=== PATIENT | female | born 1985 | race Caucasian/White ===

== ENCOUNTER 2023-02-18 04:56 | Observation (INO) | payer MEDICAID, SELFPAY ==
[2023-02-18 05:03] VITALS: BMI 22.7
[2023-02-18 05:04] VITALS: BP 112/73; PULSE 97; RESP 17; TEMP 36.6; O2SAT 97
--- NOTE | 2023-02-18 05:19 | PCM.HP.STD ---
HPI - General General Date of Admission: 02/18/23 Date of Service: 02/18/23 Chief Complaint: Desire for detoxification HPI Narrative SANYA COATS, is a 37 F with a significant history of bipolar disorder and polysubstance abuse who was transferred from [facility] for detoxification . Patient's drug of choice is methamphetamine but she states that the methamphetamine is laced with fentanyl. She also smokes marijuana. Further occasionally she uses cocaine. She was prescribed Suboxone but she states that the last time that she used Suboxone was about 2 months ago. She does not take her prescribed Suboxone because her drug of choice is methamphetamine. Upon transfer discussion to our hospital it was discussed with ED physician to notify patient that this is a predominantly Subutex program. And upon arrival patient was amenable to receiving Subutex and stated that her methamphetamine is mixed with fentanyl. Methamphetamine laced with fentanyl: She uses about 2 to 3 g/day. She uses every day. She has been using for the past 1 year. Last day she used was on 02/16/2023. Cocaine use: She been using cocaine about 1-2 times per month. She reports withdrawal symptoms of body aches and fatigue. [facility] Medical History (Updated 02/18/23 @ 06:[address] Matt Rodriguez MD) Acute hepatitis C Anxiety Bipolar disorder Depression Home Medications aripiprazole 10 mg tablet 10 mg PO DAILY 02/18/23 [History Last Taken Unknown] hydroxyzine pamoate 25 mg capsule 50 mg PO TID PRN Anxiety 02/18/23 [History Last Taken Unknown] sertraline 50 mg tablet 50 mg PO DAILY 02/18/23 [History Last Taken Unknown] Allergy/AdvReac Type Severity Reaction Status Date / Time No Known Allergies Allergy Verified 02/18/23 04:56 Family History (Updated 02/18/23 @ 06:[address] Matt Rodriguez MD) Other Glaucoma Surgical History (Updated 02/18/23 @ 06:[address] Matt Rodriguez MD) H/O tooth extraction History of Social History Smoking Status: Current every day smoker tobacco type: cigarettes ROS ROS Narrative Pertinent positives and pertinent negatives as noted in HPI. All other systems were reviewed and are negative. Vital Signs Vital Signs Vital Signs: 02/18/23 05:04 Temperature 97.8 F Temperature Source Oral Pulse Rate 97 Respiratory Rate 17 Blood Pressure 112/73 Blood Pressure Mean 86 Blood Pressure Source Monitor Blood Pressure Position Semi-Fowlers Blood Pressure Location Right Arm Pulse Ox 97 Oxygen Delivery Method Room Air Weight Weight: 60.1 kg Body Mass Index (BMI) 22.7 Physical Exam Narrative Physical exam: General: Well-nourished, well-developed. Head: Normocephalic, atraumatic, no tenderness Eyes: Vision is grossly intact. EOMI ENT, no trauma, moist mucous membranes, no rhinorrhea Neck: Nontender, No thyromegaly. CVS: Regular rate and rhythm. S1-S2 present. No murmur, gallop or rub. Respiratory : clear to auscultation bilaterally, chest wall nontender Abdomen: Soft, nontender, nondistended, normal bowel sounds, no masses : Deferred Back: Nontender, no CVA tenderness, no midline spinal tenderness, deformities, step-offs Extremities: Nontender full range of motion, no trauma Skin: Normal color, no trauma, abrasions. Needle track redmond of bilateral upper extremities. Neuro: Alert, oriented, cranial nerves II through XII grossly intact. Psychiatry: Normal mood. Normal affect. Not depressed. Not anxious. Assessment & Plan Assessment/Plan (1) Desire for detoxification: (2) Opioid abuse: (3) Methamphetamine abuse: (4) Tobacco use: PLAN: Plan Opioid dependence and withdrawal Patient will be started on Subutex and other adjunctive medications: Gabapentin as needed; dicyclomine as needed; Vistaril as needed; methocarbamol as needed; clonidine as needed; Imodium as needed; trazodone as needed and Zofran as needed. Monitor COWS and CINA score Methamphetamine abuse Counselled Marijuana abuse Counseled Tobacco abuse Counseled Scheduled nicotine patch and as needed nicotine gum prescribed. DVT prophylaxis Low risk Encourage to ambulate Charges/Coding Visit Charges Inpatient E&M: 80162 Init Hosp L2
[2023-02-18] MEDS: Methocarbamol 750 MG Tablet 1500 MG PO ×2 (05:41→22:15)
[2023-02-18 07:20] VITALS: O2SAT 98
--- NOTE | 2023-02-18 07:54 | PN.HOSP_ITS ---
Reason for Visit Reason for Visit: Diagnoses Opioid abuse, uncomplicated (02/18/23) Other stimulant abuse, uncomplicated (02/18/23) Tobacco use (02/18/23) Subjective Subjective Feels sick. Feels hot. Objective Data Objective Data Vital Signs: Vital Signs Temp Pulse Resp BP Pulse Ox O2 Del Method 36.6 C 97 17 112/73 98 Room Air 02/18/23 05:04 02/18/23 05:04 02/18/23 05:04 02/18/23 05:04 02/18/23 07:20 02/18/23 07:20 Oxygen Delivery Method Room Air Weight: 60.1 kg Body Mass Index (BMI) 22.7 Intake & Output: Intake and Output for Last 24 Hours 02/16/23 02/17/23 02/18/23 23:59 23:59 23:59 Intake Total 200 / 200 Balance 200 / 200 Physical Exam Const alert and no apparent distress HEENT head/scalp atraumatic and moist oral mucous membranes GI non-tender Extremity normal to inspection Neuro oriented x3 and moves all extremities Assessment & Plan Assessment/Plan (1) Desire for detoxification: PLAN: Opioid dependence and withdrawal Patient will be started on Subutex and other adjunctive medications: Gabapentin as needed; dicyclomine as needed; Vistaril as needed; methocarbamol as needed; clonidine as needed; Imodium as needed; trazodone as needed and Zofran as needed. Monitor COWS and CINA score PLAN: Plan Chronic conditions: * Methamphetamine abuse: complicates long-term sobriety * Marijuana abuse: complicates long-term sobriety * Tobacco abuse Scheduled nicotine patch and as needed nicotine gum prescribed. DVT prophylaxis Low risk Encourage to ambulate Charges/Coding Visit Charges Inpatient E&M: 22331 Subs Hosp L1
[2023-02-18 09:34] VITALS: BP 113/69; PULSE 100; RESP 16; TEMP 36.7; O2SAT 95
[2023-02-18] MEDS: hydrOXYzine PAM 25 MG Capsule 50 MG PO ×2 (09:41→22:15)
[2023-02-18] MEDS: Sertraline 50 MG Tablet PO (09:42)
[2023-02-18] MEDS: cloNIDine HCl 0.1 MG Tablet PO (09:42)
[2023-02-18] MEDS: ARIPiprazole 10 MG Tablet PO (09:42)
[2023-02-18] MEDS: Buprenorphine HCl 2 MG TAB.SUBL SL ×2 (15:04→22:15)
[2023-02-18 15:16] VITALS: BP 96/70; PULSE 69; RESP 16; TEMP 36.5; O2SAT 97
[2023-02-18 22:09] VITALS: BP 120/75; PULSE 111; RESP 14; TEMP 36.6; O2SAT 97
[2023-02-19 06:18] VITALS: BP 115/71; PULSE 65; RESP 16; TEMP 36.4; O2SAT 100
[2023-02-19] MEDS: Methocarbamol 750 MG Tablet 1500 MG PO ×2 (06:22→23:40)
[2023-02-19] MEDS: cloNIDine HCl 0.1 MG Tablet PO (06:22)
[2023-02-19] MEDS: hydrOXYzine PAM 25 MG Capsule 50 MG PO ×2 (06:22→15:06)
[2023-02-19] MEDS: Buprenorphine HCl 2 MG TAB.SUBL SL ×2 (06:22→15:06)
[2023-02-19 07:54] VITALS: O2SAT 98
--- NOTE | 2023-02-19 07:57 | PN.HOSP_ITS ---
Reason for Visit Reason for Visit: Diagnoses Opioid abuse, uncomplicated (02/18/23) Other stimulant abuse, uncomplicated (02/18/23) Tobacco use (02/18/23) Subjective Subjective Started on buprenorphine last night. Complains of frontal headache and general malaise. Objective Data Objective Data Vital Signs: Vital Signs Temp Pulse Resp BP Pulse Ox O2 Del Method 36.4 C L 65 16 115/71 98 Room Air 02/19/23 06:18 02/19/23 06:18 02/19/23 06:18 02/19/23 06:18 02/19/23 07:54 02/19/23 07:54 Oxygen Delivery Method Room Air Weight: 60.1 kg Body Mass Index (BMI) 22.7 Intake & Output: Intake and Output for Last 24 Hours 02/17/23 02/18/23 02/19/23 23:59 23:59 23:59 Intake Total 200 / 200 Balance 200 / 200 Physical Exam Const alert and no apparent distress HEENT head/scalp atraumatic and moist oral mucous membranes Assessment & Plan Assessment/Plan (1) Desire for detoxification: PLAN: Opioid dependence and withdrawal Patient will be started on Subutex and other adjunctive medications: Gabapentin as needed; dicyclomine as needed; Vistaril as needed; methocarbamol as needed; clonidine as needed; Imodium as needed; trazodone as needed and Zofran as needed. Monitor COWS and CINA score Since buprenorphine was started last night, would anticipate another 2 days in the hospital. Therefore, discharge anticipated for 02/21. Pt to go to residential program, [facility]. PLAN: Plan Chronic conditions: * Methamphetamine abuse: complicates long-term sobriety * Marijuana abuse: complicates long-term sobriety * Tobacco abuse Scheduled nicotine patch and as needed nicotine gum prescribed. DVT prophylaxis Low risk Encourage to ambulate Charges/Coding Visit Charges Inpatient E&M: 49780 Subs Hosp L1
--- NOTE | 2023-02-19 10:24 | ADDICTION ---
This administrative underwriter met with PT to conduct ASAM, MSE, AUDIT, DUDIT assessments and to plan for d/c. PT A+Ox4 and participated actively. All assessments completed and placed in PT's chart. PT plans to f/u with [facility] for follow-up in patient treatment services on . [facility] will transport to treatment.
[2023-02-19 10:45] VITALS: BP 109/81; PULSE 86; RESP 18; TEMP 36.1; O2SAT 96
[2023-02-19] MEDS: Ondansetron 8 MG Tablet PO ×2 (10:51→23:40)
[2023-02-19] MEDS: ARIPiprazole 10 MG Tablet PO (15:06)
[2023-02-19] MEDS: Sertraline 50 MG Tablet PO (15:06)
[2023-02-19 15:10] VITALS: BP 123/80; PULSE 61; RESP 17; TEMP 36.4; O2SAT 92
[2023-02-19 20:13] VITALS: BP 97/64; PULSE 69; RESP 16; TEMP 36.5; O2SAT 94
[2023-02-20] MEDS: Methocarbamol 750 MG Tablet 1500 MG PO ×3 (06:46→22:51)
[2023-02-20 06:51] VITALS: BP 94/60; PULSE 66; RESP 16; TEMP 36.6; O2SAT 96
--- NOTE | 2023-02-20 08:25 | PN.HOSP_ITS ---
Reason for Visit Reason for Visit: Diagnoses Opioid abuse, uncomplicated (02/18/23) Other stimulant abuse, uncomplicated (02/18/23) Tobacco use (02/18/23) Subjective Subjective Headache resolved. Feeling overall better. Objective Data Objective Data Vital Signs: Vital Signs Temp Pulse Resp BP Pulse Ox O2 Del Method 36.6 C 66 16 94/60 96 Room Air 02/20/23 06:51 02/20/23 06:51 02/20/23 06:51 02/20/23 06:51 02/20/23 06:51 02/20/23 06:51 Oxygen Delivery Method Room Air Weight: 60.1 kg Body Mass Index (BMI) 22.7 Intake & Output: Intake and Output for Last 24 Hours 02/18/23 02/19/23 02/20/23 23:59 23:59 23:59 Intake Total 200 / 200 Balance 200 / 200 Physical Exam Const alert and no apparent distress HEENT head/scalp atraumatic and moist oral mucous membranes Assessment & Plan Assessment/Plan (1) Desire for detoxification: PLAN: Opioid dependence and withdrawal Patient will be started on Subutex and other adjunctive medications: Gabapentin as needed; dicyclomine as needed; Vistaril as needed; methocarbamol as needed; clonidine as needed; Imodium as needed; trazodone as needed and Zofran as needed. Monitor COWS and CINA score Since buprenorphine was started last night, would anticipate another 2 days in the hospital. Therefore, discharge anticipated for 02/21. Pt to go to residential program, [facility]. PLAN: Plan Chronic conditions: * Methamphetamine abuse: complicates long-term sobriety * Marijuana abuse: complicates long-term sobriety * Tobacco abuse Scheduled nicotine patch and as needed nicotine gum prescribed. DVT prophylaxis Low risk Encourage to ambulate Charges/Coding Visit Charges Inpatient E&M: 94139 Subs Hosp L1
[2023-02-20] MEDS: Ondansetron 8 MG Tablet PO (08:28)
[2023-02-20 10:03] VITALS: O2SAT 96
[2023-02-20] MEDS: hydrOXYzine PAM 25 MG Capsule 50 MG PO ×2 (10:40→22:51)
[2023-02-20] MEDS: Dicyclomine 10 MG Capsule 20 MG PO (10:40)
[2023-02-20] MEDS: Sertraline 50 MG Tablet PO (10:44)
[2023-02-20 10:49] VITALS: BP 118/80; PULSE 91; RESP 17; TEMP 36.8; O2SAT 100
[2023-02-20 16:00] VITALS: BP 111/80; PULSE 81; RESP 16; TEMP 36.7; O2SAT 100
[2023-02-20] MEDS: ARIPiprazole 10 MG Tablet PO (16:35)
[2023-02-20] MEDS: Gabapentin 300 MG Capsule PO (16:35)
[2023-02-20 22:38] VITALS: BP 107/71; PULSE 95; RESP 16; TEMP 37.2; O2SAT 96
[2023-02-21 03:25] VITALS: BP 115/85; PULSE 85; RESP 16; TEMP 36.6; O2SAT 96
[2023-02-21] MEDS: Gabapentin 300 MG Capsule PO (03:32)
[2023-02-21 08:40] VITALS: BP 97/55; PULSE 75; RESP 18; TEMP 37.1; O2SAT 93
[2023-02-21] MEDS: Sertraline 50 MG Tablet PO (09:17)
--- NOTE | 2023-02-21 09:30 | DCINST_ITS ---
Discharge Instructions Diet Discharge Diet: No restrictions Activity Discharge Activity: Return to Normal Activity Follow Up Care Test Results: Test results from this visit will be discussed in further detail at your follow- up appointment, if applicable. Discharge Plan Admission Admit Date/Time: 02/18/23 04:56 Primary Reason for Your Visit: opiate withdrawal Attending Provider: Kobe Hathaway Consulting Providers: Matt Rodriguez Discharge Orders/Prescriptions Prescriptions: Continued hydroxyzine pamoate 25 mg capsule 50 mg PO TID PRN (Reason: Anxiety) Label Comments: take 1 capsule by mouth three times a day if needed for anxiety sertraline 50 mg tablet 50 mg PO DAILY aripiprazole 10 mg tablet 10 mg PO DAILY Disposition Disposition (needs filled in before D/C Order can be placed): Home, Self Care
--- NOTE | 2023-02-21 09:31 | DS.PCM_ITS ---
Providers Date of Admission: 02/18/23 Reason For Visit: DETOX POLYSUBSTANCE ABUSE Diagnosis Discharge Diagnosis (1) Desire for detoxification: Status: Acute Plan: Opioid dependence and withdrawal Patient will be started on Subutex and other adjunctive medications: Gabapentin as needed; dicyclomine as needed; Vistaril as needed; methocarbamol as needed; clonidine as needed; Imodium as needed; trazodone as needed and Zofran as needed. Monitor COWS and CINA score Since buprenorphine was started last night, would anticipate another 2 days in the hospital. Therefore, discharge anticipated for 02/21. Pt to go to residential program, [facility]. Plan Chronic conditions: * Methamphetamine abuse: complicates long-term sobriety * Marijuana abuse: complicates long-term sobriety * Tobacco abuse Scheduled nicotine patch and as needed nicotine gum prescribed. DVT prophylaxis Low risk Encourage to ambulate Medications at Discharge Home Medications aripiprazole 10 mg tablet 10 mg PO DAILY 02/18/23 hydroxyzine pamoate 25 mg capsule 50 mg PO TID PRN Anxiety 02/18/23 sertraline 50 mg tablet 50 mg PO DAILY 02/18/23 Hospital Course Operations None Procedures None Summary of Care Provided Minutes Spent on Discharge: 24 Weight / BMI Weight Weight: 60.1 kg Body Mass Index (BMI) 22.7 D/C Instructions Discharge Diet: No restrictions Meaningful Use Info Meaningful Use Diagnoses (Choose all that apply): None applicable Discharge Plan Admission Admit Date/Time: 02/18/23 04:56 Primary Reason for Your Visit: opiate withdrawal Attending Provider: Kobe Hathaway Consulting Providers: Matt Rodriguez Discharge Orders/Prescriptions Prescriptions: Continued hydroxyzine pamoate 25 mg capsule 50 mg PO TID PRN (Reason: Anxiety) Label Comments: take 1 capsule by mouth three times a day if needed for anxiety sertraline 50 mg tablet 50 mg PO DAILY aripiprazole 10 mg tablet 10 mg PO DAILY Disposition Disposition (needs filled in before D/C Order can be placed): Home, Self Care Charges/Coding Visit Charges Inpatient E&M: 21488 Disch Hosp
[2023-02-21 10:09] VITALS: BP 129/80; PULSE 110; RESP 18; TEMP 36.5; O2SAT 100
[2023-02-21] MEDS: ARIPiprazole 10 MG Tablet PO (10:13)
== END 2023-02-21 10:29 | disposition home or self-care (01) | DRG 772 ==
PROVIDERS: Admitting Provider Hospitalist
DX: F11.23 Opioid dependence with withdrawal (principal); F15.10 Other stimulant abuse, uncomplicated; F31.9 Bipolar disorder, unspecified; F12.10 Cannabis abuse, uncomplicated; F17.210 Nicotine dependence, cigarettes, uncomplicated; F41.9 Anxiety disorder, unspecified; Z79.899 Other long term (current) drug therapy; F14.90 Cocaine use, unspecified, uncomplicated; Z86.19 Personal history of other infectious and parasitic diseases
CPT/HCPCS: H0012